=== PATIENT | female | born 1990 | race Caucasian/White ===

== ENCOUNTER → 2019-01-26 | Outpatient (CLI) | payer BC ==
[2019-01-26 14:07] LABS: HEMOGLOBIN A1C 5.9 % (< 5.7)
[2019-01-31 12:08] LABS: LYME IGG/IGM AB <0.91 ISR (0.00-0.90)
[2019-01-31 13:09] LABS: ANA DIRECT Negative (Negative)
== END ==
LOC: LB.CLINIC 08:46
PROVIDERS: ATTEND Family Medicine
DX: Z00.00 Encounter for general adult medical examination without abnormal findings (principal); Z13.220 Encounter for screening for lipoid disorders; Z13.6 Encounter for screening for cardiovascular disorders; Z13.1 Encounter for screening for diabetes mellitus; R73.01 Impaired fasting glucose; M19.90 Unspecified osteoarthritis, unspecified site
CPT/HCPCS: 36415; 80061; 82947; 83036; 84550; 85651; 86038; 86141; 86200; 86431; 86618

== ENCOUNTER 2019-10-15 16:06 | Emergency (ER) | payer BC, OTHER ==
[2019-10-15 17:17] VITALS: BP 129/82; PULSE 102
[2019-10-15] MEDS ORDERED: Phenazopyridine 100 MG Tab ONE (17:30)
[2019-10-15] MEDS ORDERED: Phenazopyridine 100 MG Tab PO ONE (17:34)
--- NOTE | 2019-10-15 17:34 | EDM.PDOC ---
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 No f gwyn, no vomiting or diarrhea. No back pain. Similar to prior UTI, last one about 2-3 yrs ago. Onset: Today Duration: Hour(s): Location: Reports: Pelvis Quality: Reports: Burning, Same as Previous Episode Severity: Moderate Improves with: Reports: None Worsens with: Reports: None - Related Data Allergies Allergy/AdvReac Type Severity Reaction Status Date / Time hay Allergy Other Uncoded 11/04/15 09:17 Home Meds: Home Meds nitrofurantoin macrocrystaL [Nitrofurantoin] 100 mg PO BID 7 Days #14 capsule 10/15/19 [Rx] Past Medical History HEENT History: Reports: Allergic Rhinitis Cardiovascular History: Reports: Other (See Below) Other Cardiovascular History: hx SVT Genitourinary History: Reports: UTI, Recurrent 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 Denies: Fever, Weakness HEENT: Reports: No Symptoms Respiratory: Reports: No Symptoms Cardiovascular: Reports: No Symptoms Endocrine: Reports: No Symptoms GI/Abdominal: Reports: No Symptoms. Denies: Nausea, Vomiting : Reports: Dysuria, Frequency, Hematuria, Urgency. Denies: Discharge, Flank Pain Musculoskeletal: Reports: No Symptoms Skin: Reports: No Symptoms Neurological: Reports: No Symptoms Psychiatric: Reports: No Symptoms ED EXAM, GENERAL - Physical Exam Exam: See Below Exam Limited By: No Limitations General Appearance: Alert, WD/WN, No Apparent Distress Head: Atraumatic Neck: Normal Inspection Respiratory/Chest: No Respiratory Distress, Lungs Clear, Normal Breath Sounds Cardiovascular: Normal Peripheral Pulses, Regular Rate, Rhythm GI/Abdominal: Normal Bowel Sounds, Soft. No: Distended, Guarding Back Exam: Normal Inspection Extremities: Normal Inspection Neurological: Alert, Oriented, CN II-XII Intact, Normal Cognition Psychiatric: Normal Affect Skin Exam: Warm, Dry, Intact, Normal Color, No Rash Course - Vital Signs Last Recorded V/S: Last Vital Signs Temp 98.3 F 10/15/19 17:16 Pulse 102 H 10/15/19 17:16 Resp 18 10/15/19 17:16 BP 129/82 10/15/19 17:16 Pulse Ox 100 10/15/19 17:16 - Orders/Labs/Meds Labs: Laboratory Tests 10/15/19 Range/Units 17:15 Urine Color Other Urine Appearance Clear (CLEAR) Urine pH 6.0 (5.0-8.0) Ur Specific Tangent 1.015 (1.003-1.030) Urine Protein 30 H (NEGATIVE) mg/dL Urine Glucose (UA) Negative (NEGATIVE) mg/dL Urine Ketones 40 H (NEGATIVE) mg/dL Urine Occult Blood Large H (NEGATIVE) Urine Nitrite Negative (NEGATIVE) Urine Bilirubin Negative (NEGATIVE) Urine Urobilinogen 0.2 (0.2-1.0) E.U./dL Ur Leukocyte Esterase Small H (NEGATIVE) Urine RBC 75-100 H /HPF Urine WBC 40-50 H /HPF Ur Squamous Epith Cells Few /HPF Urine Bacteria Few /HPF - Re-Assessments/Exams Free Text/Narrative Re-Assessment/Exam: 10/15/19 17:33 UA completed c/w cystitis 10/15/19 17:39 Pt was given Macrobid 50mg sig 2 tabs BID for 7 days Departure - Departure Time of Disposition: 17:40 Disposition: Home, Self-Care 01 Condition: Good Clinical Impression: UTI (urinary tract infection), UTI, Urinary tract infectious disease - Discharge Information *PRESCRIPTION DRUG MONITORING PROGRAM REVIEWED*: No *COPY OF PRESCRIPTION DRUG MONITORING REPORT IN PATIENT CHIDI: No Sepsis Event Note (ED) - Evaluation Sepsis Screening Result: No Definite Risk - Focused Exam Vital Signs: Vital Signs Temp Pulse Resp BP Pulse Ox 10/15/19 17:16 98.3 F 102 H 18 129/82 100
== END 2019-10-15 18:01 | disposition home or self-care (01) ==
LOC: LB.ED 16:06
DX: N39.0 Urinary tract infection, site not specified (principal); Z91.048 Other nonmedicinal substance allergy status
CPT/HCPCS: 81001; 99283; A9270

== ENCOUNTER 2023-09-27 15:29 | Emergency (ER) | payer BC | END 2023-09-27 16:30 | disposition left against medical advice (07) | LOC: LB.ED 15:29 | DX: Z53.21 Procedure and treatment not carried out due to patient leaving prior to being seen by health care provider (principal) ==